=== PATIENT | female | born 1965 | race Caucasian/White ===

== ENCOUNTER 2024-11-12 19:32 | Emergency (ER) | payer MEDICAID, SELFPAY ==
[2024-11-12 19:33] VITALS: BMI 40.7
[2024-11-12 20:30] VITALS: BP 116/77; PULSE 67; RESP 18; TEMP 36.5; O2SAT 96
--- NOTE | 2024-11-12 20:37 | EKG_ITS ---
[facility] Test Date: 2024-11-12 Pat Name: JULIANA BRADLEY Department: Room: - Gender: Female Behavioral Assistant: : 1965 Requested By: Rajeev Quiñonez Order Number: [id number] Reading MD: Rajeev Quiñonez Measurements Intervals [place] Rate: 61 P: 32 VA: 146 QRS: -11 QRSD: 91 T: 20 QT: 408 QTc: 414 Interpretive Statements SINUS RHYTHM No previous ECG available for comparison /store/S0/[id number]/ecg/[id number].pdf
--- NOTE | 2024-11-12 20:37 | XR_ITS ---
Examination: CT brain head without contrast. 2-D sagittal coronal reconstructions Date and time of exam:November 12, 2024, 2048 hours INDICATIONS: Headaches with dizziness high blood pressure beginning 3 days ago CTDI: vol (mGy):46 DLP: (mGycm):866 Technique: Multiple CT axial sections of the brain have been obtained, 5 mm slice thickness. Contrast has not been administered. 2-D sagittal, coronal reconstructions have been obtained Low dose protocols were performed. One or more of the following dose reduction techniques were used; automated exposure control, adjustment of the mA and/or KV according to patient size, use of iterative reconstruction technique. Findings: No significant ventricular enlargement. Chronic changes right optic globe Intra-axial or extra-axial hemorrhage density is not seen. No mass effect or midline shift Basal cisterns are not remarkable. Fourth ventricle is midline. Cranial vault intact. Impression: Negative for acute hemorrhage, mass effect or midline shift
--- NOTE | 2024-11-12 20:38 | PD.EDRME ---
Rapid Medical Screening Exam RME Arrival date/time: 11/12/24 19:32 This is a case of a 59-year-old female who came in the emergency room due to headache with tremor and painful urination for now with worsening of her symptoms now feeling that she wants to pass out last patient decided to sought consult here in the emergency room Chief Complaint: Headache Time Seen by Provider: 11/12/24 19:34 Vital signs: Vital Signs Temperature 97.7 F 11/12/24 20:30 Pulse Rate 67 11/12/24 20:30 Respiratory Rate 18 11/12/24 20:30 Blood Pressure 116/77 11/12/24 20:30 Pulse Oximetry (%) 96 11/12/24 20:30 Oxygen Delivery Method Room Air 11/12/24 20:30
--- NOTE | 2024-11-12 21:03 | PD.EDFMALE ---
ED Female Urogenital RME/HPI General Chief complaint: Headache Stated complaint: HIGH BP / HEADACHE AND NO URINATION FOR TWO DAYS Time Seen by Provider: 11/12/24 19:34 Arrival date/time: 11/12/24 19:32 RME / HPI RME / HPI Narrative: 11/12/24 19:32 This is a case of a 59-year-old female who came in the emergency room due to headache with tremor and painful urination for now with worsening of her symptoms now feeling that she wants to pass out last patient decided to sought consult here in the emergency room DR. FIORE MAIN ED EVALUATION: 59 y/o female with Hx of chronic back pain presents to ED c/o urinary retention x 3 days. Also reports headache, dizziness and lightheadedness. Denies any dysuria. Patient has been taking IBU long-term for management of back pain and believe it may be affecting her kidney function. Patient was been put back on IBU approximately 1 month ago. No other concerns or complaints expressed at this time. Related Data Home Medications ?Medication ?Instructions ?Recorded ?Confirmed Hydrocodone/Acetaminophen * (NORCO 7.5 mg PO PRN ##90 02/25/16 01/17/21 7.5/325 *) albuterol sulfate 90 mcg/actuation 2 puff inhalation BID ##18 02/25/16 01/17/21 aerosol inhaler (Ventolin HFA) beclomethasone dipropionate 80 2 puff inhalation BID ##9 02/25/16 01/17/21 mcg/actuation aerosol inhaler (Qvar) baclofen 10 mg tablet 10 mg PO QDAY PRN 01/17/21 01/17/21 estradiol 0.01% (0.1 mg/gram) 2 g vaginal DIRECTED 01/17/21 01/17/21 vaginal cream (Estrace) fluoxetine 20 mg capsule 20 mg PO QDAY 01/17/21 01/17/21 ibuprofen 800 mg tablet 800 mg PO TID 01/17/21 01/17/21 nitrofurantoin 100 mg PO BID 01/17/21 01/17/21 monohydrate/macrocrystals 100 mg capsule (Macrobid) simvastatin 20 mg tablet 20 mg PO QHS 01/17/21 01/17/21 Allergies Allergy/AdvReac Type Severity Reaction Status Date / Time codeine Allergy Mild RASH N/V Unverified 01/17/21 09:50 Review of Systems Review of Systems Systems Reviewed: All systems reviewed, normal except as documented Past Medical History Past Medical History CARDIAC: Positive Hypotension Social History SMOKING STATUS: Current some day smoker ED Exam Narrative Physical exam: Generally patient is alert and in no obvious distress, eyes show mild strabismus, neck showed no nuchal rigidity, heart regular rate and rhythm, lungs clear to auscultation equal bilaterally, abdomen soft bowel sounds present nondistended nontender, neurologic exam no focal motor deficits with [place] Coma Scale of 15. Rapid alternating movements and upuamw-ua-ncck movements are intact bilaterally. Course Quality Measures none Orders Category Date Time Status EKG (ED ONLY) *Do not use* NOW Care 11/12/24 20:[address] head/brain wo con Stat Exams 11/12/24 20:37 Completed EKG (ED Only) Stat Exams 11/12/24 20:37 Draft CBC Stat Lab 11/12/24 21:04 Completed CMP [Comprehensive Metabolic Panel] Stat Lab 11/12/24 21:04 Completed Urinalysis Stat Lab 11/12/24 21:02 Completed Vital Signs Vital signs: Vital Signs Temperature 97.7 F 11/12/24 20:30 Pulse Rate 67 11/12/24 20:30 Respiratory Rate 18 11/12/24 20:30 Blood Pressure 116/77 11/12/24 20:30 Pulse Oximetry (%) 96 11/12/24 20:30 Oxygen Delivery Method Room Air 11/12/24 20:30 Urogenital - Female MDM Narrative MDM Narrative:: Scribe Attestation: I, Daniela Fernandez, am scribing for and in the presence of Dr. Fiore. Provider Notation: Although this document has been carefully reviewed, there may still be some phonetic and other typographical errors. These errors are purely grammatical due to imperfections in the software program and should not be construed in any way to? compromise the substance of the patient's medical care during this visit. I interpreted all labs. There is a degree of renal insufficiency. Potassium is normal. Urine is not infected. Head CT was negative. Patient does have appropriate primary care follow-up. Patient be discharged in stable condition. Patient data External records reviewed:: [facility] previous records (No prior ED records available for review.) Clinical information provided by:: patient Social determinants that could affect healthcare access:: none Patient has the following chronic illnesses:: Hypotension How is presenting disease/condition affected by chronic disease/condition?: exacerbated by Evaluation data The following diagnostics were reviewed and interpreted by me:: lab results, radiology exam(s) and EKG tracing(s) Lab and/or radiology exams considered but not ordered:: None Interpretation Summary: RADIOLOGY Head/Brain CT: Findings: No significant ventricular enlargement. Chronic changes right optic globe Intra-axial or extra-axial hemorrhage density is not seen. No mass effect or midline shift Basal cisterns are not remarkable. Fourth ventricle is midline. Cranial vault intact. Impression: Negative for acute hemorrhage, mass effect or midline shift Medications / Prescriptions Medications or Prescriptions considered but not ordered:: None Medication administrations:: See above if any Consultations Consultation(s) initiated? (list below): No Diagnosis Urogenital Female Differential Diagnosis: urinary tract infection, cystitis and other (Renal Failure, RED, Pyelonephritis) Most likely diagnosis given after review of the tests above:: None Admission Indicated Admission indicated?: not indicated Explain why admission is indicated or not indicated:: Patient does not meet admission criteria Admission Request Was there a request for admission?: No Disposition Plan Disposition Plan: Discharge Discharge Attestation Discharge Attestation: The patient and all family members were given an opportunity to ask questions and understood the discharge instructions. Discharge instructions specifically effects, indications for sooner follow up or return to the emergency department, and the expected course of current diagnosis. Patient condition: Stable Discharge Plan Plan Patient Disposition: HOME (Self Care) Prescriptions/Referrals Prescriptions/Med Rec: No Action baclofen 10 mg tablet 10 mg PO QDAY PRN ibuprofen 800 mg tablet 800 mg PO TID simvastatin 20 mg tablet 20 mg PO QHS fluoxetine 20 mg capsule 20 mg PO QDAY nitrofurantoin monohyd/m-cryst [Macrobid] 100 mg capsule 100 mg PO BID Rx Instructions: must administer with a meal/food estradiol [Estrace] 0.01 % (0.1 mg/gram) cream 2 g vaginal DIRECTED Patient Comments: twice a week. Rx Instructions: for 7 days beclomethasone dipropionate [Qvar] 100 PUFF/7.3 GM aerosol 2 puff Inhalation BID Qty: 9 albuterol sulfate [Ventolin HFA] 200 PUFF/INH HFA aerosol inhaler 2 puff Inhalation BID Qty: 18 Hydrocodone/Acetaminophen * (NORCO 7.5/325 *) 1 TAB tablet 7.5 mg PO PRN Qty: 90 Referrals: Temporary Provider,ED [Primary Care Provider] - In 1 week Problem List Clinical Impression: Headache, Dizziness, Renal insufficiency Patient/Caregiver Discharge Instructions Education Materials: ED Renal Insufficiency Additional Instructions: Continue all current medications. Follow-up with your doctor for further treatment and evaluation. Return to ER as needed or if condition worsens. Print Language: Nepali Stand Alone Forms: Linda Award Info., Patient Portal Info Letter
[2024-11-12 21:11] LABS: Collection Type, Urine Voided
[2024-11-12 21:37] LABS: Bacteria,Urine 1+; Bilirubin,Urine Negative (Negative); Blood,Urine Negative (Negative); Clarity,Urine Turbid (Clear/Hazy); Color,Urine Lt-Yellow (Lt Yel-Yel); Glucose, Urine Negative (Negative); Hyaline Casts,Urine 1 /hpf (0-1); Ketones,Urine Negative (Negative); Leukocyte Esterase,Urine Positive (Negative); Nitrite,Urine Negative (Negative); PH,Urine 5.5 (5.0-7.0); Protein,Urine Trace (Neg - Trace); RBC,Urine 2 /hpf (0-3); Specific Gravity,Urine 1.015 (1.001-1.035); Squamous Epithelial Cell,Urine 14 /hpf (0-5); Urobilinogen,Urine Negative mg/dL (0.0-1.0); WBC,Urine 3 /hpf (0-5)
[2024-11-12 21:38] LABS: Basophils # (Auto) 0.0 Thou/mm3 (0.0-0.2); Basophils % (Auto) 0 % (0-2.5); Eosinophils # (Auto) 0.1 Thou/mm3 (0.0-0.5); Eosinophils % (Auto) 1 % (0-10); Hematocrit 38.6 % (36.0-46.0); Hemoglobin 12.7 g/dL (12.0-16.0); Immature Granulocytes Auto 0.02 Thou/mm3 (0.00-0.00); Lymphocytes # (Auto) 3.2 Thou/mm3 (1.0-4.8); Lymphocytes % (Auto) 37 % (10-50); Mean Corpuscular HGB Conc 32.9 g/dl (31.0-37.0); Mean Corpuscular Hemoglobin 30.6 pg (25.0-35.0); Mean Corpuscular Volume 93 fL (80-100); Monocytes # (Auto) 0.8 Thou/mm3 (0.0-0.8); Monocytes % (Auto) 10 % (0-12); Neutrophils # (Auto) 4.5 Thou/mm3 (1.8-7.7); Neutrophils % (Auto) 52 % (37-80); Nucleated Red Blood Cell # 0.00 Thou/mm3 (0.00-0.00); Nucleated Red Blood Cell % 0 /100 WBC (0); Platelet Count 401 Thou/mm3 (140-440); RDW Standard Deviation 44.3 fL (36.4-46.3); Red Blood Count 4.15 Miln/mm3 (4.00-5.20); White Blood Count 8.6 Thou/mm3 (3.6-11.0)
[2024-11-12 21:50] VITALS: BP 115/42; PULSE 63; RESP 21; TEMP 36.5; O2SAT 97
[2024-11-12 21:59] LABS: Alanine Aminotransferase 14 U/L (10-49); Albumin, Serum 4.7 gm/dL (3.5-5.0); Albumin/Globulin Ratio 1.6 (1.2-2.2); Alkaline Phosphatase 90 U/L (46-116); Anion Gap 12 (7-16); Aspartate Amino Transferase 22 U/L (0-34); BUN/Creatinine Ratio 16 Ratio (12-20); Bilirubin,Total 0.2 mg/dL (0.3-1.2); Blood Urea Nitrogen 39 mg/dL (9-23); Calcium 10.2 mg/dL (8.3-10.6); Calcium (Corrected) 10.2 mg/dL (8.5-10.1); Carbon Dioxide 21.3 mMol/L (20.0-31.0); Chloride 105 mMol/L (98-107); Creatinine (Component) 2.4 mg/dL (0.6-1.3); Estimated Creatinine Clearance 24.2 mL/min (>60); Globulin 3.0 gm/dL (2.3-3.5); Glucose 89 mg/dL (74-106); Osmolality,Calculated 284 (275-295); Potassium 4.1 mMol/L (3.4-5.1); Sodium 138 mMol/L (136-145); Total Protein 7.7 gm/dL (5.7-8.2); eGFR 23 See Note
[2024-11-12 22:15] VITALS: BP 129/59; PULSE 53; RESP 16; O2SAT 99
== END 2024-11-12 22:17 | disposition home or self-care (01) ==
PROVIDERS: Nurse Practitioner Family; Emergency Provider Emergency Medicine
DX: R51.9 Headache, unspecified (principal); N28.9 Disorder of kidney and ureter, unspecified; R42 Dizziness and giddiness
CPT/HCPCS: 36415; 70450; 80053; 81001; 85025; 93005; 99283